=== PATIENT | male | born 1945 | race Caucasian/White ===

== ENCOUNTER 2022-12-05 12:22 | Observation (INO) | payer MEDICARE, SELFPAY ==
[2022-11-28 13:33] VITALS: BMI 40.4
[2022-12-05] VITALS (11 sets, daily range): BP systolic 124–176; BP diastolic 74–107; PULSE 99–125; RESP 12–20; TEMP 36.1–36.8; O2SAT 95–99; BMI 40.3
[2022-12-05] MEDS: VANCOMYCIN 1,000 MG/200 ML PIGGYBACK 200 MG IV (12:29)
[2022-12-05] MEDS: CELECOXIB 200 MG CAPSULE PO (12:58)
[2022-12-05] MEDS: LACTATED RINGERS 1,000 ML 42 ML IV ×2 (13:01→14:35)
--- NOTE | 2022-12-05 13:12 | PM.PREOP ---
Pre-operative Note Interval Note History & Physical reviewed/Exam performed by Physician: Yes Changes to H&P: No
--- NOTE | 2022-12-05 13:13 | PM.OP.1 ---
Operative Date/Time/Diagnoses Date of procedure: 12/05/22 Time of procedure: 13:30 Pre-op diagnosis: Severe right hip osteoarthritis Post-op diagnosis: same Procedure & Clinicians Procedure: Right total hip arthroplasty posterior approach Same procedure as scheduled: Yes Indications: The patient has had progressively worsening right hip pain with radiographic changes consistent with arthritis. Non-operative management has failed and the patient has requested total hip replacement. The risks, benefits and alternatives to surgery were discussed with the patient prior to proceeding. Risks discussed included, but were not limited to, failure to relieve pain, leg length discrepancy, dislocation, stiffness, infection, nerve damage, deep venous thrombosis, pulmonary embolism, stroke, coma, heart attack, permanent paralysis and , as well as the potential need for eventual revision of the prosthetic. Surgeon: Anneliese Hummle Quality Process Auditor: Mehdi Rasmussen Anesthesia Type: General Operative Notes Findings: Severe right hip osteoarthritis, adequate stability, Closure Type: primary Specimen(s): none sent Prosthetic devices, grafts, tissues, transplants, or devices: Hummel and nephew anthology size 9 high offset, 56 R3 cup, neutral poly liner, 36 x -3 cobalt chrome head, one 6.5 mm screw Estimated Blood Loss (mL): 250 Blood products transfused: none Procedure in detail: The patient was seen in the pre-operative area, where the patient identified the right hip as the operative site and this was marked with my initials. The patient received pre-operative antibiotics and was taken to the operating room and placed on the operative table in the left lateral decubitus position after satisfactory anesthesia. A fuller brush worker out was performed. The right leg was prepared from the ankle to the iliac crest with ChloroPrep in the usual fashion and draped through sterile drapes. The hip was approached through an approximately 20 cm incision centered over the greater trochanter and curving gently posteriorly as it went proximally. This was carried sharply to the fascia bartolo, which was divided and retracted with a self retaining retractor. The trochanteric bursa was excised with care being taken to avoid the sciatic nerve, which was identified and protected throughout the case. The short external rotators were incised and the capsulomuscular flap was raised and tagged for later repair. The hip was dislocated, and a femoral neck osteotomy performed approximately 15 mm above the lesser trochanter. Retractors were placed around the femur. The patient had morbid obesity and we meticulously mobilize the femur and carefully retracted. The canal was opened with a box cutting osteotome, followed by a T handled reamer and a lateralizing reamer. The chili pepper broach was then used, followed by sequential broaching until there was good stability of the broach in the femur. Retractors were placed to expose the acetabulum. The labrum and central soft tissues were removed. Reaming was performed initially going up in 2 mm increments, then 1 mm increments until good bite was obtained with an odd sized reamer. The cup 1 mm larger than the last reamer was then inserted using the appropriate anteversion guides. It was further stabilized with a single screw. A trial neutral liner was placed. The broach was placed in the canal. A trial head and neck were then placed and the hip relocated and checked for leg length and stability. An intraoperative film confirmed the component position and no evidence of fracture. The patient was stable in the position of sleep, of squatting, and could be put through a range of motion with 45 degrees internal rotation without dislocation. At 90 degrees flexion, internal rotation to 70 was possible before dislocation. This was felt to be satisfactory and the appropriate components were opened, and the trials were removed. The acetabular liner was impacted into position. The final stem was then impacted into the prepared femoral canal. A brief Betadine soak was performed while trialing with head options. The hip was meticulously irrigated with normal saline. Finally the femoral head was impacted onto the stem. The acetabulum was cleared of all material and the hip relocated one final time. The capsulomuscular flap was then repaired to the greater trochanter though an awl hole using the tag sutures. The short external rotators were repaired with a nonabsorbable suture. A deep drain was placed and brought out anteriorly. The fascia bartolo was closed with Vicryl. The subcutaneous layer was closed with barbed sutures and surgical glue. A kristie dressing was applied and the patient was taken to recovery having tolerated the procedure well. Complications: none Post-operative Condition: stable Disposition: Acute Care Plan for aftercare: The patient will be maintained on a standard total hip replacement protocol with weight bearing as tolerated and posterior hip precautions. The patient will receive Aspirin and sequential compression devices for DVT prophylaxis. The patient will be discharged home when safe for the home environment.
[2022-12-05 13:31] LABS: COVID19 -Nasal RAPID Negative (Negative)
[2022-12-05] MEDS: CEFAZOLIN 2 GM/100 ML PREMIX 100 ML IV (13:50)
--- NOTE | 2022-12-05 14:00 | DI.RAD.S_ITS ---
PROCEDURE: XR PELVIS 1-2V INDICATIONS: INNER OP TECHNIQUE: Intra-operative view of the pelvis and hip acquired. COMPARISON: None. FINDINGS: Bones: Intraoperative devices prior to placement of arthroplasty prostheses are in expected positions. No fractures or suspicious bony lesions. Soft tissues: Overlying surgical retractors are present, along with other intraoperative changes. IMPRESSION: Expected intraoperative postsurgical change for left hip arthroplasty. Dictated by: Kamryn Hale MD, PhD on 12/05/2022 at 16:26 Approved by: Kamryn Hale MD, PhD on 12/05/2022 at 16:26
--- NOTE | 2022-12-05 14:09 | SUR.OPER ---
Lateral on padded OR bed. Gel axillary roll. Arms secured on padded armboard with pillow supporting top arm. Padded hip positioner braces x4 - anterior and posterior chest and pelvis. Additional gel pad used anterior pelvis. Gel pad under bottom leg from knee to foot and secured with tape over sheet. Pt positioned per direction and supervision of Dr Hummel.
[2022-12-05] MEDS: BUPIVACAINE LIPOSOME 266 MG/20 ML VIAL INJ (14:15)
[2022-12-05] MEDS: BUPIVACAINE 0.25% W/ EPI 30 ML VIAL 60 ML INJ (14:15)
[2022-12-05] MEDS: EPINEPHRINE 1 MG/ML INJ (14:15)
[2022-12-05] MEDS: TRANEXAMIC ACID 1,000 MG in SODIUM CHLORIDE 0.9% 100 ML 200 MG IV (15:38)
--- NOTE | 2022-12-05 16:00 | DI.RAD.S_ITS ---
PROCEDURE: XR HIP W PEL IF DONE RT 2V INDICATIONS: RIGHT TOTAL HIP TECHNIQUE: 2 view(s) of the hip acquired. COMPARISON: [facility], CR, XR PELVIS WITH LATERAL HIP RIGHT, 11/22/2022, 15:23. [facility], CR, XR PELVIS 1-2V, 12/05/2022, 15:00. FINDINGS: Bones: Patient is status post right hip arthroplasty, with hardware components in expected positions. The hip joint appears congruent. The visualized bony structures appear intact. Soft tissues: Overlying postoperative changes are noted. No suspicious soft tissue densities. IMPRESSION: Expected postsurgical change for right hip arthroplasty. Dictated by: Kamryn Hale MD, PhD on 12/05/2022 at 16:40 Approved by: Kamryn Hale MD, PhD on 12/05/2022 at 16:40
[2022-12-05] MEDS: LABETALOL 20 MG/4 ML SYRINGE 5 MG IV (16:34)
[2022-12-05] MEDS: OXYCODONE IR 5 MG TABLET PO (16:49)
[2022-12-05] MEDS: ONDANSETRON 4 MG ODT PO (17:18)
[2022-12-05] MEDS: OXYCODONE IR 10 MG TABLET PO ×2 (17:19→21:12)
[2022-12-05] MEDS: IBUPROFEN 200 MG TABLET 600 MG PO ×2 (17:47→21:12)
[2022-12-05] MEDS: LACTATED RINGERS 1,000 ML 125 ML IV (17:48)
[2022-12-05] MEDS: ACETAMINOPHEN 325 MG TABLET 650 MG PO (18:18)
[2022-12-05] MEDS: ASPIRIN EC 81 MG TABLET PO (21:11)
[2022-12-05] MEDS: AMLODIPINE 5 MG TABLET PO (21:12)
[2022-12-05] MEDS: SPIRONOLACTONE 25 MG TABLET PO (21:12)
[2022-12-05] MEDS: DOCUSATE 100 MG CAPSULE PO (21:12)
[2022-12-05] MEDS: DOXEPIN 10 MG CAPSULE PO (21:12)
[2022-12-05] MEDS: CEFAZOLIN VIAL 3 GM in SODIUM CHLORIDE 0.9% 100 ML IV (21:52)
[2022-12-06] VITALS: BP 153/81; PULSE 109; RESP 18; TEMP 36.6; O2SAT 97
[2022-12-06] MEDS: ACETAMINOPHEN 325 MG TABLET 650 MG PO ×2 (00:30→05:35)
[2022-12-06] MEDS: OXYCODONE IR 5 MG TABLET PO ×3 (00:30→08:24)
[2022-12-06] MEDS: IBUPROFEN 200 MG TABLET 600 MG PO ×3 (00:30→08:23)
--- NOTE | 2022-12-06 00:59 | PC.NURSE ---
Patient is alert and oriented. Slightly IONE and does not have hearing aids. Breath sounds CTA with sat of 97% on oxygen at 5L/min so weaning oxygen down and is currently decreased to 2L/min of 94% while asleep. HRR but tachy in low 100's. Denies nausea. BT present but has not yet passed flatus. Voiding using urinal and denies dysuria. Is able to turn himself in bed. At 0000 sat up on edge of bed and able to stand at bedside with walker while linens changed. JAMES dressing to right hip is intact and functioning. Medicated with oxycodone 10mg at 2112 for 7/10 pain and again with 5mg at 0030 for 5/10 pain along with scheduled tylenol + ibuprofen. CMS is intact although only able to lift right leg a couple inches off bed. Wearing bilateral calf SCD's. Fall risk score is moderate; alarm not in use as patient is calling for assistance appropriately.
[2022-12-06 03:55] VITALS: BP 119/62; PULSE 91; RESP 19; TEMP 36.3; O2SAT 94
[2022-12-06] MEDS: CEFAZOLIN VIAL 3 GM in SODIUM CHLORIDE 0.9% 100 ML IV (05:30)
[2022-12-06 06:01] LABS: Hematocrit 40.3 % (41-53); Hemoglobin 13.5 g/dL (13.5-17.5)
--- NOTE | 2022-12-06 07:07 | P.DS_ITS ---
History of Present Illness History of Present Illness Date Patient Seen: 12/06/22 Time Patient Seen: 07:07 Chief complaint: RT TURNER Narrative: Operative Date/Time/Diagnoses Date of procedure: 12/05/22 Time of procedure: 13:30 Pre-op diagnosis: Severe right hip osteoarthritis Post-op diagnosis: same Procedure & Clinicians Procedure: Right total hip arthroplasty posterior approach Same procedure as scheduled: Yes Indications: The patient has had progressively worsening right hip pain with radiographic changes consistent with arthritis. Non-operative management has failed and the patient has requested total hip replacement. The risks, benefits and alternatives to surgery were discussed with the patient prior to proceeding. Risks discussed included, but were not limited to, failure to relieve pain, leg length discrepancy, dislocation, stiffness, infection, nerve damage, deep venous thrombosis, pulmonary embolism, stroke, coma, heart attack, permanent paralysis and , as well as the potential need for eventual revision of the prosthetic. Surgeon: Anneliese Hummel Dressmaker Garment Fitter: Mehdi Rasmussen Anesthesia Type: General Operative Notes Findings: Severe right hip osteoarthritis, adequate stability, Closure Type: primary Specimen(s): none sent Prosthetic devices, grafts, tissues, transplants, or devices: Hummel and nephew anthology size 9 high offset, 56 R3 cup, neutral poly liner, 36 x -3 cobalt chrome head, one 6.5 mm screw Estimated Blood Loss (mL): 250 Blood products transfused: none Discharge Providers Provider Date of admission: 12/05/22 12:22 Discharge Date: 12/06/22 Primary care physician: August Núñez DO Consults: 11/23/22 11:33 Consult to Anesthesiology Routine Comment: Consulting Provider: Anesthesiologist Reason for consultation: Regional block for post operative pain control 11/28/22 15:16 Consult to Anesthesiology Routine Comment: Consulting Provider: Anesthesiologist Reason for consultation: Surgeon requested re: Multiple medical issues 12/05/22 17:07 Consult to Discharge Planning Routine Comment: Consult to Physical Therapy Evaluate & Treat Comment: Physician Instructions: post op TURNER protocol Discharge provider: Elin Taveras PA-C Summary Hospital Course Discharge Diagnosis: Right hip osteoarthritis, s/p right total hip arthroplasty Hospital Course: Mr Jiménez'elena hospital course was unremarkable. On the morning of POD# 1, he had not yet been OOB but would like to go home. He was eating and voiding without difficulty. His pain was well-controlled with oral medication. His O2 saturation was in the 90s while receiving 2 L via NC. He denies h/o home O2 or smoking. Exam Vital Signs (past 8 hours): - 12/06/22 00:00 12/06/22 03:55 Temperature 97.9 F 97.4 F L Pulse Rate 109 H 91 H Respiratory Rate 18 19 Blood Pressure 153/81 H 119/62 Pulse Oximetry 97 94 Oxygen Flow Rate 3 2 Oxygen Delivery Method Nasal Cannula Oxygen Flow Rate 2 Narrative Exam Narrative: 5/5 strength in hip flexors, quadriceps, hamstrings, DF, PF, EHL on right. Sensation to light touch intact throughout RLE. Calves soft, compressible, n ontender and without palpable cords or masses. JAMES dressing functioning. Objective Labs 12/06/22 05:45 Labs: Laboratory Results - last 24 hr 12/05/22 12/06/22 12:40 05:45 Hgb 13.5 Hct 40.3 L SARS-CoV-2 (PCR) Negative PFSH Medical History (Updated 11/28/22 @ 14:29 by Judie Norris RN) Cirrhosis COPD (chronic obstructive pulmonary disease) Easy bruisability Hearing impaired HTN (hypertension) Kidney stone Osteoarthritis Pre-diabetes Presence of neurostimulator Sleep apnea Spinal stenosis Surgical History (Updated 11/28/22 @ 14:29 by Judie Norris RN) H/O: vasectomy History of carpal tunnel surgery of left wrist History of carpal tunnel surgery of right wrist History of lumbar spinal fusion (2003) Hx of bilateral cataract extraction Hx of knee surgery Hx of lithotripsy Hx of umbilical hernia repair Social History household members: spouse Smoking Status: Former smoker alcohol intake: former Discharge Assessment & Plan Assessment and Plan Assessment: Right hip osteoarthritis, s/p right total hip arthroplasty Plan of Treatment: Discharge home after PT if PT feels it is appropriate and pt able to maintain O2 sats at least 90% on RA. Pt has postop meds at home with the exception of ASA; was reminded ASA 81 mg BID x 6 weeks for VTE prophylaxis. Outpt PT, f/u in office in 2 weeks as scheduled. Discharge Plan Discharge Plan Patient Disposition: Home Discharge orders & Medications Prescriptions: New aspirin 81 mg Tablet,Delayed Release (Dr/Ec) 81 mg PO BID Qty: 90 0RF Continued albuterol sulfate 2.5 mg /3 mL (0.083 %) Solution For Nebulization 2.5 mg INHALATION Q4-6H PRN (Reason: Shortness Of Breath) amlodipine 5 mg Tablet 5 mg PO BEDTIME doxepin 10 mg Capsule 10 mg PO BEDTIME acetaminophen 500 mg Tablet 500 mg PO Q4H PRN (Reason: Pain) spironolactone 25 mg Tablet 25 mg PO BEDTIME oxycodone 15 mg Tablet 7.5 mg PO Q4H PRN (Reason: Pain) ibuprofen 200 mg Tablet 600 mg PO Q4H Follow up/Referrals: Anneliese Hummel MD [Physician] - As previously scheduled (Follow up w/ Dr Hummel on 12/21/2022 @ 11:00 am at [facility] office in [place].) August Núñez DO [Primary Care Provider] - Diet/Activity/Treatments Diet: Diet as Tolerated Activity: Weight bearing as tolerated to right leg. Posterior hip precautions. Cold/Heat Therapy: Ice to hip as needed for pain. Skin/Wound/Dressing Care Report to your healthcare provider any signs of infection, such as:: chills, fever, night sweats, unusual drainage and unusual redness Dressing: May shower; leave JAMES dressing in place until follow up in office. Batteries will in 5-7 days; when this happens, can cut off battery pack and dispose of it. No bathing or otherwise soaking incision. Call the office if the dressing becomes saturated inside. Visit Report/Discharge Packet Instructions: DI for Hip Replacement, DI for Prescription Opioid Use Stand Alone Forms: Patient Portal/API, Stroke Signs & Symptoms, Surgery Discharge Discharge Data Primary Care Provider: August Núñez Quality VTE Deep Vein Thrombosis/Pulmonary Embolism Present on Admission: No
--- NOTE | 2022-12-06 08:15 | PT.IIE ---
Current Diagnoses Unilateral primary osteoarthritis, right hip (12/05/22) Surgery Performed Operation Date: 12/05/22 14:15 Actual Procedures p Total Hip Arthroplasty(Right) - Anneliese Hummel MD Surgical History (Last Updated 11/28/22 @ 14:29 by Judie Norris, RN) H/O: vasectomy History of carpal tunnel surgery of left wrist History of carpal tunnel surgery of right wrist History of lumbar spinal fusion (2003) Hx of bilateral cataract extraction Hx of knee surgery Hx of lithotripsy Hx of umbilical hernia repair Medical History (Last Updated 11/28/22 @ 14:29 by Judie Norris, RN) Cirrhosis COPD (chronic obstructive pulmonary disease) Easy bruisability Hearing impaired HTN (hypertension) Kidney stone Osteoarthritis Pre-diabetes Presence of neurostimulator Sleep apnea Spinal stenosis Physical Therapy Inpatient Evaluation/Re-Eval M1 PT/OT-IP Prior Functional Status Start: 12/06/22 20:45 Freq: NEEDED Status: Active Protocol: Document 12/06/22 07:30 AMB (Rec: 12/06/22 21:28 AMB [id number]-) Medical Review Prior Functional Status Medical History Reviewed Yes Mobility and Gait Uses 4WW at baseline Social History Household Members spouse Living Arrangements House Number of Floors (Floors) One Floor Employment Status Retired Additional Social History Comment Pt plans on sleeping in his recliner for the first few weeks M2 PT-IP Current Condition Start: 12/06/22 20:45 Freq: NEEDED Status: Active Protocol: Document 12/06/22 07:30 AMB (Rec: 12/06/22 21:28 AMB [id number]-) Physical Therapy Current Condition Current Condition Evaluation Date 12/06/22 Treatment Diagnosis posterior approach R TURNER Onset Date 12/05/22 M3 PT-IP Subjective Start: 12/06/22 20:45 Freq: NEEDED Status: Active Protocol: Document 12/06/22 07:30 AMB (Rec: 12/06/22 21:28 AMB [id number]-) Subjective Physical Therapy Visit Type Type Initial Evaluation Visit Start Time 07:45 Visit Stop Time 08:15 Total Visit Minutes 30 Physical Therapy Visit Comments Patient Comments Pt asleep upon entering, willing to get up I can't sleep in these beds, I want to go home Therapy Pain Assessment Pain When Pain Assessed At Rest Location Right Hip Intensity 0 Scale Used Numeric (0 - 10) M4 PT-IP Mobility and Gait Start: 12/06/22 20:45 Freq: NEEDED Status: Active Protocol: Document 12/06/22 07:30 AMB (Rec: 12/06/22 21:28 AMB [id number]) PT-Bed Mobility Assessment Rolling Type of Rolling Roll to Right Level of Assist Minimal Assistance Supine to Sit Supine to Sit Minimal Assistance Scooting Scooting to Edge of Bed Minimal Assistance PT-Transfer Assessment Sit to and From Stand Sit to and from Stand Contact Guard Assistance Equipment Transfer Assistive Device Bed Rail,4 Wheeled Walker Transfers Transfer Destination Bed,Chair,Toilet Transfer Technique Stand Step Pivot Transfer Ability Level of Assist Contact Guard Assistance Comments Mobility Comments Pt's nasal cannula was not in his nose, so his SpO2 monitor was beeping at 88-89% when he was sleeping, when awoken and pt put nasal cannula into his nose SpO2 quickly emerita to 96%. Pt performed all mobility on room air. Pt able to recite posterior hip precautions with 50% assistance from PT. Pt states you'll need to help me up when PT asks pt to roll and perform bed mobility. Pt required Britney for all bed mobility, pt states he will be sleeping in his recliner and that my is strong Gait Assessment Gait Gait Assistance Required: Contact Guard Assist Distance (Feet) 20 Assistive Devices Assistive Device Front Wheeled Walker Gait Deviations General Gait Pattern Antalgic,Decreased Stride Length,Step-to Gait,Wide Based Gait Factors Limiting Gait Function Factors Limiting Gait Function Decreased Strength,Limited Range of Motion,Pain Comments Gait Comments Ramos ambulated from bed to the bathroom, standing to urinate. He then ambulated back to the sink, washed his hands, walked around his room and sat down in his recliner. He required his 4WW and CGA for all ambulation. Performed multipele sit to stands with cues for form and to have surgical leg out in front. Pt able to move from sit to stand with SBA at end of session. PT-Balance Assessment Sitting Balance and Reactions Static Sitting Balance Ability Normal Dynamic Sitting Balance Ability Normal Standing Balance and Reactions Static Standing Balance Ability Good Dynamic Standing Balance Ability Good M5 PT-IP Objective Assessments Start: 12/06/22 20:45 Freq: NEEDED Status: Active Protocol: Document 12/06/22 07:30 AMB (Rec: 12/06/22 21:28 AMB [id number]) Orientation Orientation/Cognition Level of Alertness Alert Strength Lower Extremity Strength Assessment Right Impaired Hip 3 Knee 4 Ankle 4 M6 PT-IP Treatment Start: 12/06/22 20:45 Freq: NEEDED Status: Active Protocol: Document 12/06/22 07:30 AMB (Rec: 12/06/22 21:28 AMB [id number]-) Physical Therapy Treatment Exercises Exercises Ankle Pumps,Gluteal Sets Education Education Provided Precautions,Weight Bearing Status,Post-Op Packet,Safety M7 PT-IP Assessment and Plan Start: 12/06/22 20:45 Freq: NEEDED Status: Active Protocol: Document 12/06/22 07:30 AMB (Rec: 12/06/22 21:28 AMB [id number]) PT Summary Assessment and Plan Potential Rehabilitation Potential Good Status of Condition at Evaluation Stable Summary Impairments Pain,ROM,Strength,Gait, Activity Tolerance Assessment Summary Ramos required Britney for bed mobility s/p R posterior approach TURNER. He states he will be sleepign in his recliner and his will be present to help him. He did well once up and displayed good static balance with his 4WW. He was able to perform sit to stand from the recliner in his room with SBA with cues for posterior precautions . Educated pt in importance of frequent ambulation while at home, did provide post op packet with exercises and written precautions as well. While the patient requring assistance for bed mobility was concerning, pt did well when moving around the room with his walker and with sit to stand which is what he plans do do when at home, and is therefore cleared when medically cleared to go home with his . Goals Bed Mobility Goal Contact Guard Assistance Transfer Goal Contact Guard Assistance Gait Goal Contact Guard Assistance Gait Distance 100' Days to Meet Goals 1 Frequency of Treatment Frequency Of Treatment Discharge Treatment Plan Physical Therapy Treatment Plan Bed Mobility Training,Gait Training,Therapeutic Exercise Precautions Posterior Hip Precautions No Hip Flexion > 90 degrees,No Hip Internal Rotation,No Hip Adduction Weight Bearing Status Weight Bearing Status Weight Bear as Tolerated Recommendations To Nursing Amount of Assist Needed 1 Person Assist Discharge Recommendations PT Discharge Recommendations Home with Assistance, Outpatient PT Transportation Needs at Discharge Wheelchair/Cabulance
[2022-12-06] MEDS: ASPIRIN EC 81 MG TABLET PO (08:24)
[2022-12-06] MEDS: SODIUM CHLORIDE 0.9% FLUSH 10 ML IV (08:25)
--- NOTE | 2022-12-06 08:41 | CM.DANOTE ---
DCP: Case received, EMR reviewed and met with patient. Introduced self and role. Was able to obtain information regarding patient's baseline activity status prior to his surgery. DCP assessment completed with information currently available. Patient is a 77 year old male who admitted yesterday afternoon to the care of the orthopedic team. PCP: Dr. Núñez. Payer: confirmed: Medicare/[employer]. Patient came to the hospital via private vehicle for a surgical procedure. Patient had right total hip arthroplasty, posterior approach. Patient has history of severe right hip osteoarthritis. Met with patient in his room. He is alert and oriented, and was sitting up in his chair, four wheel walker was near him. Confirmed that he resides in [facility] with spouse, Nikki. Confirmed, she will be able to assist him when he goes home. At his baseline, he drives, uses a four wheel walker. He mentioned that he has no stairs in the home to navigate. He was a contractor, retired in 2001. Patient has had other surgeries, back surgeries, in the past. P: Patient has discharge orders for home today, and will work with PChen wharton. Francy Faria RN/Assistant Front Office Manager Discharge Planning/Care Management CM Discharge Assessment Start: 12/06/22 08:40 Freq: Status: Active Protocol: Document 12/06/22 08:40 (Rec: 12/06/22 08:41 [id number]) Discharge Planning Assessment Assigned Block Layer Francy Faria RN/Assistant Front Office Manager Advance Directives? Yes Advance Directives on File No History Provided By Patient,Medical Record Prior Living Arrangements House Household Members spouse Type of transporation used prior to Drives own vehicle admit Independent with ADL's Yes Is patient alert and oriented? Yes Needs Assistance With Home Chores / Shopping Caregiver for Another No DME Already Rented / Owned FWW / Walker Patient/Family Preference OP PT Therapy Barriers to Discharge No Discharge Plan Home Referrals Initiated None needed Whiteboard Updated in Patient Room with Yes name and ext. # of Block Layer Review Status In Process Next Review Type Continued Stay Review Pre-Anesthesia Assessment Start: 11/22/22 13:55 Freq: Status: Complete Protocol: Document 11/28/22 13:33 CAB (Rec: 11/28/22 14:58 CAB [id number]) Pre-Anesthesia Assessment PAC Comment Pt to bring remote to turn off neurostimulator in back prior to surgeryPCP Patient Information Reviewed Via Phone Assessment Assessment Completed With Patient Comment Outside labs/EKG completed Primary Care Provider August Núñez Seen Specialist in Last 12 Months Yes Specialist Seen Orthopedist Comment PCP visit 09/18/22 scanned Primary Language South Korean Cotton Broker Required No Height 5 ft 9 in Weight 274 lb Body Mass Index (BMI) 40.4 Hearing Ability Hearing Impaired Visual Impairment No Limitations Visual Assist None Dentition Type Teeth, Natural Present,Teeth, Missing Barriers to Learning Auditory Hx Anesthesia Reactions No Hx Family Anesthesia Reaction No Hx Malignant Hyperthermia No Hx Blood Transfusions No Anesthesia Review Requested Yes: Surgeon requested re: Multiple medical issues 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 No Does patient have JOHNSON/SOB Yes: r/t COPD Hx Sleep Apnea Yes CPAP/BIPAP use prescribed not used Currently Taking a Beta Sugey No Hx Chest Pain No Hx SOB Yes: r/t COPD Hx Syncope or Dizziness Yes: Occasional Anti-Coagulant Therapy No Has a Building Cleaner No Cardiac Testing No Hx Pacemaker/ICD No Pacemaker Rep Required? No Cardiac Clearance Received Not Applicable Diet Type At Home Diabetic Dysphagia No Gastrointestinal Symptoms None Bladder Pattern Nocturia Urinary Catheter Present No Hx Urinary Self Catheterization No Diabetes No: Pre-diabetes Presence of External or Internal Medical Yes: Lumbar, bilat eye IOLs, Devices neurostimulator Received a COVID vaccine? Yes Received all doses? Yes Marital Status Lives With spouse Current Living Arrangements House Number of Floors (Floors) One Floor Support System Spouse Does the Patient Have Assistance After Yes Surgery Patient Discharge Plan Description Return Home Comment Pt advised 1-3 day length of stay per surgeon Feels Safe in Current Environment Yes Been Physically Hurt or Threatened By a No Person in Current Environment Do you have thoughts of harming yourself None or others? Are you currently considering suicide? No Do you have a plan to hurt yourself or No Plan others? Do You Have Any Spiritual Beliefs That No May Affect Your HC Choices? Do You Have Any Cultural Practices That No May Affect Your HC Choices? Comment Agnostic Who Can We Speak to About Patient's Care Family, friends Identifying Code for Release of Patient Declines to issue Information Health Care Proxy/Next of Kin Nikki () Health Care Proxy Emergency Contact Name Nikki () Emergency Contact Advance Directives? Yes Advance Directives on File No Requested Patient Bring Advanced Yes Directives DOS Power of Headlight Assembler No PAC Instructions Durable medical equipment, Medications to take/avoid, Nasal antibiotic,No ETOH/ petroleum product on skin DOS, NPO,Pre-surgical wash,Sturdy shoes/comfortable clothes,Do not bring valuables and remove jewelry
[2022-12-06 09:23] VITALS: BP 129/64; PULSE 103; RESP 16; TEMP 36.6; O2SAT 91
--- NOTE | 2022-12-06 10:42 | PC.NURSE ---
Pt dressed independently and this RN reviewed d/c paperwork regarding posterior hip precautions, diet as samreen, new medication (aspirin), s/s of infection and wound care as well as directions about the PICCO drain. Pt had no other questions or concerns at this time. Pt left unit accompanied by spouse to POV via wheelchair and all belongings @ [id number].
== END 2022-12-06 10:40 | disposition home or self-care (01) ==
PROVIDERS: Admitting Provider Orthopaedic Surgery; PCP Internal Medicine; Referring Provider Orthopaedic Surgery; Visit Provider Orthopaedic Surgery
PROC: 0SR90JZ Replacement of Right Hip Joint with Synthetic Substitute, Open Approach (ICD-10-PCS; CPT 27130; principal; 2022-12-05 14:15)
DX: M16.11 Unilateral primary osteoarthritis, right hip (principal); Z20.822 Contact with and (suspected) exposure to COVID-19
CPT/HCPCS: 27130; 36415; 72170; 73502; 85014; 85018; 87635; 97161; C1776; C9803; G0378; C9290; G0379; J0330; J0690; J1100; J1170; J2405; J2704; J3010